=== PATIENT | female | born 1980 | race Caucasian/White ===

== ENCOUNTER 2017-12-27 17:02 | Emergency (ER) | payer OTHER, SELFPAY ==
--- NOTE | 2017-12-27 18:24 | ER ---
Nurse's Notes [facility] Name: Marilee Diggs Age: 37 yrs Sex: Female : 1980 Arrival Date: 12/27/2017 Time: 17:04 Bed Treatment Private MD: Diagnosis: Irritant contact dermatitis Presentation: 12/27 17:22 Presenting complaint: Patient states: "I have a skin rash on my arms and legs and my lk1 ankles are starting to swell. I went to urgent care, but they sent me here.". Presenting complaint:. Transition of care: patient was not received from another setting of care. Onset of symptoms was December 23, 2017. Initial Sepsis Screen: Does the patient meet any 2 criteria? No. Patient's initial sepsis screen is negative. Does the patient have a suspected source of infection? No. Patient's initial sepsis screen is negative. Care prior to arrival: None. 17:22 Method Of Arrival: Ambulatory lk1 17:22 Acuity: JOSH 5 lk1 Triage Assessment: 17:24 General: Appears in no apparent distress. Behavior is calm, cooperative, appropriate lk1 for age. Pain: Denies pain. Musculoskeletal: Swelling present in right medial malleolus. 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 - Social history:: Smoking status: Patient/guardian denies using tobacco. Screenin:35 Abuse screen: Denies threats or abuse. Denies injuries from another. Nutritional aj1 screening: No deficits noted. Tuberculosis screening: No symptoms or risk factors identified. 18:49 Fall Risk None identified. aj1 Assessment: 17:35 General: Appears in no apparent distress. uncomfortable, Behavior is calm, cooperative, aj1 appropriate for age. Pain: Denies pain. Neuro: Level of Consciousness is awake, alert, obeys commands, Oriented to person, place, time, situation. Cardiovascular: Patient's skin is warm and dry. Respiratory: Airway is patent Respiratory effort is even, unlabored, Respiratory pattern is regular, symmetrical. GI: No signs and/or symptoms were reported involving the gastrointestinal system. : No signs and/or symptoms were reported regarding the genitourinary system. EENT: No signs and/or symptoms were reported regarding the EENT system. Derm: Rash noted that is itchy, red, raised, urticaria, on abdomen, right arm, left arm, right leg and left leg. Musculoskeletal: No signs and/or symptoms reported regarding the musculoskeletal system. Circulation, motion, and sensation intact. 18:26 Reassessment: Patient appears in no apparent distress at this time. No changes from aj1 previously documented assessment. Patient and/or family updated on plan of care and expected duration. Pain level reassessed. Patient is alert, oriented x 3, equal unlabored respirations, skin warm/dry/pink. Vital Signs: 17:24 BP 108 / 78; Pulse 74; Resp 14; Temp 98.0(TE); Pulse Ox 99% on R/A; Weight 90.72 kg lk1 (R); Height 5 ft. 7 in. (170.18 cm) (R); Pain 0/10; 17:24 Body Mass Index 31.32 (90.72 kg, 170.18 cm) lk1 ED Course: 17:04 Patient arrived in ED. sb2 17:23 Triage completed. lk1 17:26 Arm band placed on right wrist. lk1 17:28 [facility]ks[facility]C [facility]. snw 17:28 Wilfredo Flores MD is Attending Physician. snw 17:35 Patient has correct armband on for positive identification. Bed in low position. Call aj1 light in reach. Side rails up X 1. 17:35 No provider procedures requiring assistance completed. aj1 17:53 Vanessa Nicole, RN is Primary Nurse. aj1 18:49 Patient did not have IV access during this emergency room visit. aj1 Administered Medications: 18:48 Drug: Pepcid 20 mg Route: PO; aj1 18:50 Follow up: Response: No adverse reaction aj1 18:48 Drug: Atarax 25 mg Route: PO; aj1 18:50 Follow up: Response: No adverse reaction aj1 18:49 Drug: predniSONE 40 mg Route: PO; aj1 18:50 Follow up: Response: No adverse reaction aj1 Outcome: 18:23 Discharge ordered by . snw 18:49 Discharged to home ambulatory. aj1 18:49 Condition: good 18:49 Discharge instructions given to patient, Instructed on discharge instructions, follow up and referral plans. medication usage, Demonstrated understanding of instructions, follow-up care, medications, Prescriptions given X 3. 18:50 Patient left the ED. aj1 Signatures: Vanessa Nicole, RN RN aj1 Oksana Nair, PIPED BUTTONHOLE MACHINE OPERATOR-C PIPED BUTTONHOLE MACHINE OPERATOR-Csnw Jenni Cohen, RN RN lk1 Callie Boothe2
--- NOTE | 2017-12-27 18:24 | EDPHYS ---
Physician Documentation [facility] Name: Marilee Diggs Age: 37 yrs Sex: Female : 1980 Arrival Date: 12/27/2017 Time: 17:04 Bed Treatment Private MD: ED Physician Wilfredo Flores HPI: 12/27 18:22 This 37 yrs old Female presents to ER via Ambulatory with complaints of Rash. snw 18:22 The patient's rash thought to be caused by Dermatitis. The rash is located on the snw abdomen, right arm, left arm, right leg and left leg. The rash can be described as erythematous, macular, papular. Onset: The symptoms/episode began/occurred suddenly. Associated signs and symptoms: Pertinent positives: itching. Severity of symptoms: At their worst the symptoms were moderate severe. The patient has not recently seen a physician. pt does note that she recently used new lotion. 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 - Social history:: Smoking status: Patient/guardian denies using tobacco. ROS: 18:22 Constitutional: Negative for fever, chills, and weight loss, Eyes: Negative for injury, snw pain, redness, and discharge, ENT: Negative for injury, pain, and discharge, Neck: Negative for injury, pain, and swelling, Cardiovascular: Negative for chest pain, palpitations, and edema, Respiratory: Negative for shortness of breath, cough, wheezing, and pleuritic chest pain, Abdomen/GI: Negative for abdominal pain, nausea, vomiting, diarrhea, and constipation, Back: Negative for injury and pain, : Negative for injury, bleeding, discharge, and swelling, MS/Extremity: Negative for injury and deformity, Neuro: Negative for headache, weakness, numbness, tingling, and seizure, Psych: Negative for depression, anxiety, suicide ideation, homicidal ideation, and hallucinations. 18:22 Skin: Positive for rash. Exam: 18:20 Constitutional: This is a well developed, well nourished patient who is awake, alert, snw and in no acute distress. Head/Face: Normocephalic, atraumatic. Eyes: Pupils equal round and reactive to light, extra-ocular motions intact. Lids and lashes normal. Conjunctiva and sclera are non-icteric and not injected. Cornea within normal limits. Periorbital areas with no swelling, redness, or edema. ENT: Nares patent. No nasal discharge, no septal abnormalities noted. Tympanic membranes are normal and external auditory canals are clear. Oropharynx with no redness, swelling, or masses, exudates, or evidence of obstruction, uvula midline. Mucous membranes moist. Neck: Trachea midline, no thyromegaly or masses palpated, and no cervical lymphadenopathy. Supple, full range of motion without nuchal rigidity, or vertebral point tenderness. No Meningismus. Chest/axilla: Normal chest wall appearance and motion. Nontender with no deformity. No lesions are appreciated. Cardiovascular: Regular rate and rhythm with a normal S1 and S2. No gallops, murmurs, or rubs. Normal PMI, no JVD. No pulse deficits. Respiratory: Lungs have equal breath sounds bilaterally, clear to auscultation and percussion. No rales, rhonchi or wheezes noted. No increased work of breathing, no retractions or nasal flaring. Abdomen/GI: Soft, non-tender, with normal bowel sounds. No distension or tympany. No guarding or rebound. No evidence of tenderness throughout. Back: No spinal tenderness. No costovertebral tenderness. Full range of motion. MS/ Extremity: Pulses equal, no cyanosis. Neurovascular intact. Full, normal range of motion. Neuro: Awake and alert, GCS 15, oriented to person, place, time, and situation. Cranial nerves II-XII grossly intact. Motor strength 5/5 in all extremities. Sensory grossly intact. Cerebellar exam normal. Normal gait. Psych: Awake, alert, with orientation to person, place and time. Behavior, mood, and affect are within normal limits. 18:20 Skin: Appearance: normal except for affected area, contact dermatitis, on the abdomen, right arm, left arm, right leg and left leg. Vital Signs: 17:24 BP 108 / 78; Pulse 74; Resp 14; Temp 98.0(TE); Pulse Ox 99% on R/A; Weight 90.72 kg lk1 (R); Height 5 ft. 7 in. (170.18 cm) (R); Pain 0/10; 17:24 Body Mass Index 31.32 (90.72 kg, 170.18 cm) lk1 MDM: 17:45 Patient medically screened. snw 18:25 Data reviewed: vital signs, nurses notes. Data interpreted: Pulse oximetry: on room air snw is 99 %. Interpretation: normal. Counseling: I had a detailed discussion with the patient and/or guardian regarding: the historical points, exam findings, and any diagnostic results supporting the discharge/admit diagnosis, the need for outpatient follow up, to return to the emergency department if symptoms worsen or persist or if there are any questions or concerns that arise at home. Special discussion: Based on the history and exam findings, there is no indication for further emergent testing or inpatient evaluation. I discussed with the patient/guardian the need to see the superintendent greens for further evaluation of the symptoms. I discussed with the patient/guardian the need to see the primary care provider for further evaluation of the symptoms. Administered Medications: 18:48 Drug: Pepcid 20 mg Route: PO; aj1 18:50 Follow up: Response: No adverse reaction aj1 18:48 Drug: Atarax 25 mg Route: PO; aj1 18:50 Follow up: Response: No adverse reaction aj1 18:49 Drug: predniSONE 40 mg Route: PO; aj1 18:50 Follow up: Response: No adverse reaction aj1 Disposition: 12/28 18:42 Co-signature as Attending Physician, Wilfredo Flores MD. Disposition: 12/27/17 18:23 Discharged to Home. Impression: Irritant contact dermatitis. - Condition is Stable. - Discharge Instructions: Contact Dermatitis. - Prescriptions for Pepcid 20 mg Oral Tablet - take 1 tablet by ORAL route every 12 hours for 10 days; 20 tablet. Zyrtec 10 mg Oral Tablet - take 1 tablet by ORAL route once daily As needed; 20 tablet. Prednisone 20 mg Oral Tablet - take 2 tablet by ORAL route once daily for 5 days; 10 tablet. - Work release form, Medication Reconciliation Form, Thank You Letter, Antibiotic Education, Prescription Opioid Use form. - Follow up: Private Physician; When: 2 - 3 days; Reason: Recheck today's complaints, Continuance of care, Re-evaluation by your physician. Follow up: Emergency Department; When: As needed; Reason: Worsening of condition. Signatures: Vanessa Nicole, RN RN aj1 Oksana Nair, HODA-C NIGHT STOCKER-Csnw Jenni Cohen RN RN lk1 Wilfredo Flores MD MD gs Corrections: (The following items were deleted from the chart) 12/27 18:50 18:23 12/27/2017 18:23 Discharged to Home. Impression: Irritant contact dermatitis. aj1 Condition is Stable. Forms are Medication Reconciliation Form, Thank You Letter, Antibiotic Education, Prescription Opioid Use. Follow up: Private Physician; When: 2 - 3 days; Reason: Recheck today's complaints, Continuance of care, Re-evaluation by your physician. Follow up: Emergency Department; When: As needed; Reason: Worsening of condition. snw
[2017-12-27] MEDS ORDERED: hydrOXYzine HCl 25 MG TAB ONE (18:42)
[2017-12-27] MEDS ORDERED: predniSONE 20 MG TAB ONE (18:42)
[2017-12-27] MEDS ORDERED: FAMOTIDINE 20 MG TAB ONE (18:42)
[2017-12-27 18:55] VITALS: BP 108/78; TEMP 98; O2SAT 99
== END 2017-12-27 18:50 | disposition home or self-care (01) ==
LOC: ER 17:02
DX: L24.9 Irritant contact dermatitis, unspecified cause (principal)
CPT/HCPCS: 99283; J7512